=== PATIENT | female | born 1990 | race African-American/Black ===

== ENCOUNTER 2023-06-23 12:42 | Emergency (ER) | payer OTHER, SELFPAY ==
[2023-06-23 12:55] VITALS: BP 148/94; PULSE 60; RESP 14; TEMP 36.4; O2SAT 98
--- NOTE | 2023-06-23 14:07 | ED.HEATRA ---
HPI - Head Injury General Chief complaint: Head Injury Stated complaint: hit head at work Time Seen by Provider: 06/23/23 13:29 Source: patient Mode of arrival: ambulatory Limitations: no limitations History of Present Illness HPI Narrative: This is a 32 year old female that presents to the ER for a head injury sustained this morning. Reports she was standing up and hit her head on a metal rack. Reports some mild dizziness after. Reports a headache, that is improving after ibuprofen. She did not lose consciousness. Denies visual changes, vomiting, numbness, or weakness. Related Data Allergies Allergy/AdvReac Type Severity Reaction Status Date / Time No Known Allergies Allergy Verified 06/23/23 12:42 Review of Systems Review of Systems: CONSTITUTIONAL: Denies fever EYES: Denies visual changes GASTROINTESTINAL: Denies vomiting NEUROLOGIC: Reports headache. Denies numbness, or weakness. All systems reviewed & are unremarkable except as noted in HPI and below PMFSH Past Medical History Medical History (Updated 06/23/23 @ 14:16 by Anisha Starr PA-C) No active medical problems Social History Social History (Updated 06/23/23 @ 14:11 by Anisha Starr PA-C) Smoking status: Never smoker Exam Narrative: GENERAL: Well-appearing, well-nourished, and in no acute distress. HEAD: Normocephalic, atraumatic. EYES: PERRLA and EOMI. ENT: Nares clear, no rhinorrhea or epistaxis. Mucous membranes moist. Oropharynx without tonsillar hypertrophy exudate or other lesions. Bilateral TMs pearly lomeli non-bulging NECK: Supple. No adenopathy or masses. CHEST: Clear to auscultation. No respiratory distress. No wheezes rales or rhonchi HEART: Regular rate and rhythm. No murmur heard. Normal peripheral pulses. EXTREMITIES: Normal range of motion. No edema. Strength equal in bilateral upper and lower extremities (5/5) SKIN: Warm, dry, no rash. NEURO: No focal deficits. Alert and oriented x3. Cranial nerves II through XII grossly intact PSYCH: Normal mood and affect Course Course Emergency Course: Patient agrees with plan of care Vital Signs Vital signs: Vital Signs Temperature 97.6 F 06/23/23 12:55 Pulse Rate 60 06/23/23 12:55 Respiratory Rate 14 06/23/23 12:55 Blood Pressure 148/94 H 06/23/23 12:55 Pulse Oximetry 98 06/23/23 12:55 Oxygen Delivery Room Air 06/23/23 12:55 Temperature 97.6 F 06/23/23 12:55 Pulse Rate 60 06/23/23 12:55 Respiratory Rate 14 06/23/23 12:55 Blood Pressure 148/94 H 06/23/23 12:55 Pulse Oximetry 98 06/23/23 12:55 Oxygen Delivery Room Air 06/23/23 12:55 MDM - Head Injury MDM Narrative Medical decision making narrative: Patient presents to the emergency department after standing up and hitting her head on a rack with headache. Mildly hypertensive, otherwise her vitals are normal. She is neurologically intact. Denies visual changes, vomiting, numbness or weakness. [facility] CT head injury rule clears her without imaging. Patient was instructed on continued care of concussion. She is to follow-up with primary care provider. She was given warnings to return to the ER Differential Diagnosis Differential diagnosis: Likely concussion without loss of consciousness and closed head injury Critical Care Time Critical Care Time Critical Care Time: No Discharge Plan Discharge Clinical Impression: Closed head injury Qualifiers: Encounter type: initial encounter Qualified Code(s): S09.90XA - Unspecified injury of head, initial encounter Patient Disposition: Home, Self-Care Condition: Stable Instructions: Head Injury (ED) Additional Instructions: Return to the emergency department if you experience fever, vision changes, chest pain, shortness of breath, vomiting, weakness, numbness, or any other symptoms that are concerning to you. Rest. Remain well-hydrated. [id number] pain medication as needed Follow up with primary c
== END 2023-06-23 14:18 | disposition home or self-care (01) ==
PROVIDERS: Emergency Provider Physician Assistant
DX: S09.90XA Unspecified injury of head, initial encounter (principal); W22.09XA Striking against other stationary object, initial encounter; Y99.0 Civilian activity done for income or pay
CPT/HCPCS: 99283